=== PATIENT | female | born 1995 | race Caucasian/White ===

== ENCOUNTER 2016-10-16 09:23 | Emergency (ER) | payer SELFPAY ==
[2016-10-16] MEDS ORDERED: Ondansetron 4 MG/2 ML SDV IVPUSH ONE (10:01)
[2016-10-16] MEDS ORDERED: cefTRIAXone 1 GM in Premix Bag 1 BAG IV ONE (10:01)
[2016-10-16] MEDS ORDERED: Sodium Chloride 0.9% 1,000 ML IV ONE (10:01)
[2016-10-16] MEDS ORDERED: Ketorolac 30 MG/ML SDV IVPUSH ONE (10:01)
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
[2016-10-16] MEDS ORDERED: Azithromycin 250 MG Tab PO ONE (10:12)
[2016-10-16 12:08] VITALS: BP 102/69
== END 2016-10-16 12:08 | disposition home or self-care (01) ==
LOC: MW.ED 09:23
DX: N12 Tubulo-interstitial nephritis, not specified as acute or chronic (principal); F17.210 Nicotine dependence, cigarettes, uncomplicated; Z88.2 Allergy status to sulfonamides; Z72.51 High risk heterosexual behavior
CPT/HCPCS: 81001; 87086; 87088; 87186; 87491; 87591; 96361; 96365; 96375; 99283; A9270; J0696; J1885; J2405; J7040; 99284